=== PATIENT | female | born 1935 | race Caucasian/White ===

== ENCOUNTER 2020-06-07 10:00 | Observation (INO) | payer MEDICARE ==
[~2020-06-07] VITALS: Ht 154.9 cm; Wt 59.7 kg
[2020-06-07 11:09] LABS: EOSINOPHILS % (AUTO) 4.4 % (0.0-8.0); HEMATOCRIT 42.1 % (42-54); LYMPHOCYTES % (AUTO) 27.8 % (21.0-51.0); MEAN CORPUSCULAR HEMOGLOBIN 31.2 pg (27.0-33.0); MEAN CORPUSCULAR HGB CONC 31.8 g/dL (32.0-36.0); MEAN CORPUSCULAR VOLUME 98.1 fL (79-99); MONOCYTES % (AUTO) 11.2 % (3.0-13.0); NEUTROPHILS % (AUTO) 55.4 % (40.0-77.0); PLATELET COUNT (AUTO) 312 K/uL (130-400); RED BLOOD CELL COUNT(AUTO) 4.29 MIL/uL (4.50-6.20); RED CELL DISTRIBUTION WIDTH 12.7 % (11.0-15.5); WHITE BLOOD COUNT (AUTO) 4.8 K/uL (4.8-10.8)
[2020-06-07 11:21] LABS: CREATININE 0.9 mg/dL (0.5-1.5); POTASSIUM 5.1 mmol/L (3.5-5.1)
[2020-06-13 09:43] VITALS: BP 143/66
[2020-06-13] MEDS ORDERED: FEXO1TAB8 PO (13:19)
[2020-06-13] MEDS ORDERED: ALBUTEROL SULFATE IH (13:19)
[2020-06-13] MEDS ORDERED: PAZEO OP (13:19)
[2020-06-13] MEDS ORDERED: DIPH25CA85 PO (13:19)
[2020-06-13] MEDS ORDERED: ADV250 IH (13:19)
[2020-06-13] MEDS ORDERED: SIMV-46 PO (13:19)
[2020-06-13] MEDS ORDERED: CALC-190 PO (13:19)
[2020-06-13] MEDS ORDERED: ESOM40CA PO (13:19)
[2020-06-13] MEDS ORDERED: HYDR12.54 PO (13:19)
[2020-06-14] VITALS (24 sets, daily range): BP systolic 106–189; BP diastolic 59–92
[2020-06-14] MEDS: LACTATED RINGERS 1000ML 1,000 ML IV SCH ×2 (07:27→11:00)
[2020-06-14] MEDS: CEFAZOLIN SODIUM 1 GM VIAL IVP ONE ×2 (07:27→09:30)
[2020-06-14] MEDS ORDERED: PROPOFOL 10 MG/ML 20ML VIAL IV ONE (08:50)
[2020-06-14] MEDS ORDERED: SUCCINYLCHOLINE CHLORIDE 20 MG/ML 10 ML VIAL ONE (08:50)
[2020-06-14] MEDS ORDERED: FENTANYL CITRATE PF 50 MCG/1 ML 2ML VIAL ONE ×2 (08:50→09:19)
[2020-06-14] MEDS ORDERED: LIDOCAINE PF 100MG/5ML (2%) SYRINGE 5ML ONE (08:50)
[2020-06-14] MEDS ORDERED: GLYCOPYRROLATE 1 MG/5 ML SYRINGE ONE (09:19)
[2020-06-14] MEDS ORDERED: NEOSTIGMINE 5MG/5ML SYR IV ONE (09:20)
[2020-06-14] MEDS ORDERED: ROCURONIUM 10MG/1ML SYR 10 MG/ML ML ONE (09:21)
[2020-06-14] MEDS ORDERED: DEXAMETHASONE SOD PHOSPHATE 10MG/ML 1ML VIAL ONE (09:35)
[2020-06-14] MEDS ORDERED: ONDANSETRON 4MG INJ ONE (09:46)
[2020-06-14] MEDS ORDERED: SUGAMMADEX SODIUM 200 MG/2 ML VIAL IV ONE (10:49)
[2020-06-14] MEDS ORDERED: IPRATROPIUM/ALBUTEROL SULFATE 3 ML SOLUTION IH ONE (11:09)
[2020-06-14] MEDS ORDERED: MEPERIDINE-PF 25 MG/ML SYG ONE (11:11)
[2020-06-14] MEDS ORDERED: RACEPINEPHRINE HCL 2.25% 0.5 ML NEB SOLN ONE (11:15)
[2020-06-14] MEDS ORDERED: MIDAZOLAM HCL 1 MG/ML 2ML VIAL ONE (11:23)
[2020-06-14] MEDS ORDERED: MEPERIDINE-PF 75 MG/ML SYG IM PRN (12:00)
[2020-06-14] MEDS ORDERED: BISACODYL 10 MG SUPP.RECT RC PRN (12:00)
[2020-06-14] MEDS ORDERED: IBUPROFEN 600 MG TABLET PO PRN (12:00)
[2020-06-14] MEDS ORDERED: ONDANSETRON 4MG INJ IVP PRN (12:00)
[2020-06-14] MEDS ORDERED: PROMETHAZINE HCL 25 MG/ML 1ML AMPULE IM PRN ×2 (12:00)
[2020-06-14] MEDS ORDERED: MEPERIDINE-PF 75 MG/ML SYG ONE (12:21)
[2020-06-14] MEDS: DEXTROSE 5 %-0.45 % NACL 1,000 ML IV PRN ×2 (12:51→20:54)
[2020-06-14] MEDS ORDERED: ALBUTEROL 0.083% 2.5 MG/3 ML INH IH PRN (14:15)
[2020-06-14] MEDS: ACETAMINOPHEN WITH CODEINE 1 TAB TAB PO PRN (15:51)
[2020-06-15] MEDS: ACETAMINOPHEN WITH CODEINE 1 TAB TAB PO PRN ×3 (01:12→22:22)
[2020-06-15 03:36] VITALS: BP 104/64
[2020-06-15] MEDS: DEXTROSE 5 %-0.45 % NACL 1,000 ML IV PRN (05:18)
[2020-06-15 05:44] LABS: HEMATOCRIT 36.8 % (36-48); MEAN CORPUSCULAR HEMOGLOBIN 31.4 pg (27.0-33.0); MEAN CORPUSCULAR HGB CONC 32.6 g/dL (32.0-36.0); MEAN CORPUSCULAR VOLUME 96.3 fL (79-99); RED BLOOD CELL COUNT(AUTO) 3.82 MIL/uL (4.00-5.50); RED CELL DISTRIBUTION WIDTH 12.2 % (11.0-15.5)
[2020-06-15 07:14] VITALS: BP 115/61
[2020-06-15] MEDS ORDERED: ACETAMINOPHEN WITH CODEINE 1 TAB TAB PO PRN (08:15)
[2020-06-15] MEDS ORDERED: HYDROCODONE/ACETAMINOPHEN 5/325 MG TAB PO PRN (08:15)
[2020-06-15] MEDS: SIMETHICONE 80 MG TAB.CHEW PO PRN ×2 (09:11→21:02)
[2020-06-15] MEDS: DOCUSATE SODIUM 100 MG CAP PO PRN ×2 (09:11→21:02)
[2020-06-15] MEDS: NITROFURANTOIN MONOHYD/M-CRYST 100 MG CAPSULE PO SCH ×2 (09:23→21:02)
[2020-06-15] MEDS: IBUPROFEN 800 MG TAB PO PRN ×2 (11:00→17:58)
[2020-06-15 11:18] VITALS: BP 148/83
[2020-06-15 16:18] VITALS: BP 110/62
[2020-06-15 19:13] VITALS: BP 102/62
[2020-06-15 23:21] VITALS: BP 104/48
[2020-06-16 03:07] VITALS: BP 111/68
[2020-06-16] MEDS: ACETAMINOPHEN WITH CODEINE 1 TAB TAB PO PRN ×2 (06:18→11:52)
[2020-06-16 07:17] VITALS: BP 122/62
[2020-06-16] MEDS: IBUPROFEN 800 MG TAB PO PRN (08:41)
[2020-06-16] MEDS: DOCUSATE SODIUM 100 MG CAP PO PRN (08:41)
[2020-06-16] MEDS: NITROFURANTOIN MONOHYD/M-CRYST 100 MG CAPSULE PO SCH (08:41)
[2020-06-16] MEDS: SIMETHICONE 80 MG TAB.CHEW PO PRN (08:41)
[2020-06-16 11:29] VITALS: BP 129/50
[2020-06-16] MEDS ORDERED: NITR100C4 PO (13:08)
[2020-06-16] MEDS ORDERED: ACET1TAB25 PO (13:08)
== END 2020-06-16 15:05 | disposition home or self-care (01) ==
LOC: EDSTATUS 10:00 → INTOOBSV 06-14 05:30 → OBSVTOIN 06-14 05:30 → DAHIP 06-14 05:30 → EDSEX 06-14 05:30 → EDSTATUS 06-14 10:00 → WSH 06-14 12:05
PROVIDERS: ADMIT Obstetrics & Gynecology; ATTEND Obstetrics & Gynecology
DX: N81.3 Complete uterovaginal prolapse (principal); Z20.822 Contact with and (suspected) exposure to COVID-19; N39.3 Stress incontinence (female) (male); E78.5 Hyperlipidemia, unspecified; I10 Essential (primary) hypertension; K21.9 Gastro-esophageal reflux disease without esophagitis; Z90.49 Acquired absence of other specified parts of digestive tract; Z90.710 Acquired absence of both cervix and uterus; Z79.899 Other long term (current) drug therapy; Z88.8 Allergy status to other drugs, medicaments and biological substances
CPT/HCPCS: 36415 ×3; 57106; 57260; 57288; 80048; 85025; 85027; 86850; 86900; 86901; 88305; 93005; 94640 ×2; 94664; 96360; 96361 ×2; A4215; A4221; A4222; A4223; A4344; A4351; A4510; A4600; A4606; A4663; C1771; C9803; G0378 ×58; J0330; J0690 ×2; J1100; J2001; J2175 ×2; J2250; J2405; J2704; J2710; J3010 ×2; J3490; J7120; U0003